=== PATIENT | male | born 1960 | race Caucasian/White ===

== ENCOUNTER → 2023-06-07 07:50 | Outpatient (REF) | payer OTHER, SELFPAY ==
[2023-06-07 09:29] LABS: PSA, Total - Screen 0.31 ng/ml (0.0-4.0)
== END ==
LOC: REG 07:50
PROVIDERS: ATTENDING PHYSICIAN Specialist; FAMILY PHYSICIAN Family Medicine
DX: N20.1 Calculus of ureter (principal); Z12.5 Encounter for screening for malignant neoplasm of prostate
CPT/HCPCS: 36415; 74018; G0103

== ENCOUNTER → 2024-06-12 07:40 | Outpatient (REF) | payer OTHER, SELFPAY ==
[2024-06-12 09:49] LABS: PSA, Total - Screen 0.41 ng/ml (0.0-4.0)
== END ==
LOC: RAD 07:40
PROVIDERS: ATTENDING PHYSICIAN Specialist; FAMILY PHYSICIAN Family Medicine
DX: N20.1 Calculus of ureter (principal); Z12.5 Encounter for screening for malignant neoplasm of prostate
CPT/HCPCS: 36415; 74018; G0103